=== PATIENT | female | born 1985 | race African-American/Black ===

== ENCOUNTER 2023-06-20 16:57 | Emergency (ER) | payer OTHER ==
[~2023-06-20] VITALS: Ht 170.2 cm; Wt 105.2 kg
[2023-06-20 17:06] VITALS: BP 129/90; PULSE 94; RESP 18; TEMP 99.4; O2SAT 98
[2023-06-20] MEDS ORDERED: KETOROLAC 30 MG/ML VIAL IM ONE (17:35)
[2023-06-20] MEDS ORDERED: LID5T TP (17:49)
[2023-06-20] MEDS ORDERED: IBUP-2213 PO (17:49)
[2023-06-20] MEDS ORDERED: ACET-8905 PO (17:49)
[2023-06-20] MEDS ORDERED: METH4TAB1 PO (17:51)
[2023-06-20 18:35] VITALS: BP 120/84; PULSE 84; RESP 18; TEMP 98.9; O2SAT 98
== END 2023-06-20 18:29 | disposition home or self-care (01) ==
LOC: MED 16:57
DX: S39.012A Strain of muscle, fascia and tendon of lower back, initial encounter (principal); M54.17 Radiculopathy, lumbosacral region; X58.XXXA Exposure to other specified factors, initial encounter; Y92.89 Other specified places as the place of occurrence of the external cause; Y93.89 Activity, other specified; Y99.8 Other external cause status
CPT/HCPCS: 81025; 96372; 99283; J1885